=== PATIENT | female | born 1980 ===

== ENCOUNTER 2022-09-01 08:24 | Emergency (ER) | payer OTHER ==
[~2022-09-01] VITALS: Ht 152.4 cm; Wt 52.6 kg
[~2022-09-01 08:24] MED LIST: PRENATAL CAPLE1 EACH PO
[2022-09-01] MEDS ORDERED: ZYRTEC10 M3 PO (08:46)
== END 2022-09-01 15:42 | disposition home or self-care (01) ==
LOC: ER 08:24
DX: K52.9 Noninfective gastroenteritis and colitis, unspecified (principal)